=== PATIENT | female | born 1955 | race Caucasian/White ===

== ENCOUNTER 2017-09-08 12:29 | Inpatient (IN) ==
[2017-09-08] MEDS ORDERED: ONDANSETRON 4 MG/2 ML VIAL IV PRN (13:00)
[2017-09-08] MEDS ORDERED: PANTOPRAZOLE 40 MG VIAL IV ONE (13:00)
[2017-09-08] MEDS ORDERED: 0.9 % SODIUM CHLORIDE 250 ML IV SCH (13:00)
--- NOTE | 2017-09-08 13:17 | Internal Med History&Physical ---
Medical - H&P: HPI Patient information: Note initiated : 09/08/17 at 1:17 pm Service Date, if different from initiated Date: [] Patient: Nora Contreras 62 y/o F admitted on 09/08/17 for Anemia. Chief Complaint: fatigue, dyspnea. History of present illness: Patient 62-year-old female with a history of prediabetes, untreated hyperlipidemia, treated hypertension who presents with progressive dyspnea. The patient notes that her mother was ill patient was old viral illness around giving she had some GI symptoms with nausea and diarrhea. That resolved. About 2 weeks ago with the nausea returned. She had no emesis. However she did develop diarrhea of black stools which lasted about 3 days. She described them as "chalky". Her stools are now lightened up. She had no bright red blood per rectum. She had no emesis, no hematemesis. 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 She normally is active and walks a lot, now gets short of breath with minimal exertion. In addition she feels lightheaded. Additionally she's had some left upper abdominal pain, which she describes as a "stitch" in her left side which cramps around to the left back. She also notes that she feels bloated after eating a small amount. Last Monday she had some burning chest pain, does have a history of gastroesophageal reflux, took some Tums which seemed to help. The patient uses naproxen twice daily for chronic back pain, taking one over-the -counter tablet twice daily. She does not use a proton pump inhibitor or an H2 antagonist. Additionally she's noted some lower extremity edema, some weight gain over the last several days. No orthopnea. No history of heart failure. No history of coronary disease. Patient's had intermittent headaches., No fevers or chills, no sore throat, no vision changes, no syncope. Dyspnea is noted, no cough or sputum production, no pleuritic chest pain. She had burning chest pain as noted above. For couple years she's had occasional difficulty swallowing, with food apparently feeling like it sticks in the upper throat. She has not been evaluated for that. She states she does have a history of anemia and is taking [id number] iron pill. That seemed to be associated with her younger years, not such an issue recently. She presents the emergency department, evaluation reveals microcytic anemia with hemoglobin 6.6. She is being admitted for further evaluation of anemia, presumptive upper gastrointestinal hemorrhage by history. All systems: reviewed and no additional remarkable complaints except as stated Medical - H&P: PMH Medical history: Hypertension Hyperlipidemia Pre-diabetes History of anemia Gastroesophageal reflux Chronic back pain Chronic sinus congestion Exertional asthma Surgical history: History of cholecystectomy Pertinent family history: Mother with gastroesophageal reflux and coronary disease. Both paternal grandparents had colon cancer. Social history: She lives with her . Works as a teacher kindergarten. She occasionally has alcoholic drink, none recently. No tobacco use. Medical - H&P: Meds Home Medications Medication Instructions Recorded Confirmed Type Centrum Complete Multivit Tab 1 tab PO DAILY 09/08/17 09/08/17 History Iron 325 mg PO DAILY 09/08/17 09/08/17 History amlodipine 10 mg tablet 10 mg PO QDAY 09/08/17 09/08/17 History carisoprodol 350 mg tablet 350 mg PO BID PRN tab 09/08/17 09/08/17 History hydrochlorothiazide 25 mg tablet 25 mg PO QDAY 09/08/17 09/08/17 History lisinopril 40 mg tablet 60 mg PO QDAY 09/08/17 09/08/17 History metformin 1,000 mg tablet 1,000 mg PO DAILY tab 09/08/17 09/08/17 History naproxen 500 mg tablet 600 mg PO QD-BID PRN 09/08/17 09/08/17 History Allergies Allergy/AdvReac Type Severity Reaction Status Date / Time No Known Drug Allergies Allergy Unverified 09/08/17 09:34 Medical - H&P: Exam - Constitutional Vitals: Temp Resp BP Pulse Ox 97.9 F 18 136/76 100 09/08/17 13:01 09/08/17 13:01 09/08/17 13:01 09/08/17 13:01 General appearance: no acute distress, obese - Head Head exam: Present: atraumatic, normal inspection - Eye Eye exam: Present: EOMI, PERRL. Absent: conjunctival injection, scleral icterus - ENT ENT exam: Present: mucous membranes moist, normal exam, normal oropharynx - Neck Neck exam: Present: full ROM. Absent: lymphadenopathy, meningismus, thyromegaly - Respiratory Respiratory exam: Present: normal respiratory exam, CTAB. Absent: accessory muscle use - Cardiovascular Cardiovascular exam: Present: normal rate and rhythm, systolic murmur. Absent: diastolic murmur - Expanded Cardiovascular Exam Location: Present: LUSB Intensity: 2/6 Peripheral pulses: 2+: carotid (L), carotid (R) - GI/Abdominal GI/Abdominal exam: Present: normal bowel sounds, soft. Absent: distended, guarding, rebound, tenderness - Extremities Exam Extremities exam: Present: pedal edema (trace), neurovascular intact. Absent: joint swelling - Neurological Exam Neurological exam: Present: alert, CN II-XII intact, normal gait, oriented X3. Absent: motor sensory deficit - Psychiatric Psychiatric exam: Present: normal affect, normal mood - Skin Skin exam: Present: dry, warm Medical - H&P: Reslt - Labs Labs: Lab results from [facility] White count 5.3, hemoglobin 6.6, platelet count 180,000 with MCV of 77. Sodium 139, potassium 4.2, chloride 102, bicarbonate 22, BUN 14, creatinine 0.8. Glucose on nonfasting sample 128. Liver enzymes normal. Troponin is normal. CK-MB mildly abnormal, uncertain significance. Stool guaiac done in [facility] is negative - Imaging and Cardiology Chest x-ray Status: image reviewed by me Additional comments: IMPRESSION: No acute abnormality Medical - H&P: A/P (1) Gastrointestinal hemorrhage Current visit: Yes Status: Acute (2) Hypertension Current visit: Yes Status: Acute (3) Anemia Current visit: No Status: Acute - Narrative A/P Narrative: 62-year-old female presents with dyspnea on exertion, fatigue, lightheadedness, recent weight gain and edema. Found to have severe anemia with hemoglobin of 6.6. Microcytic anemia. Suspect this is from GI hemorrhage given her history of nausea and dark stools occurring about 2 weeks ago just as she developed her symptoms. Suspect this is associated with nonsteroidal use, she uses naproxen twice daily for chronic back pain. Renal function normal. Troponins are negative. CK-MBs are mildly abnormal uncertain significance given troponins below the limit of detection, certainly a more sensitive marker of any cardiac injury. Plan: Inpatient admission Transfuse 2 units packed red blood cells to keep 2 units ahead GI consultation Nothing by mouth tomorrow morning for EGD tomorrow afternoon Proton pump inhibitor for acid suppression Hypertension. Blood pressures were running normal, and she had not taken medications this morning. Plan: Hold antihypertensives in the face of GI hemorrhage. Lower extremity edema. She also has a cardiac murmur, suspect these are both functional from a high output state. Plan: Follow exam after blood administration, may benefit from diuresis. Prediabetes. Abnormal nonfasting glucose of 128, likely represents stress. Plan: Check hemoglobin A1c. CODE STATUS is Full Code. Prophylaxis: SCDs. Pharmacologic prophylaxis is contraindicated due to GI hemorrhage.
[2017-09-08] MEDS: 0.9 % SODIUM CHLORIDE 1,000 ML IV SCH (14:14)
[2017-09-08] MEDS: PANTOPRAZOLE 40 MG VIAL IV SCH (22:00)
[2017-09-08] MEDS ORDERED: CARISOPRODOL 350 MG TABLET PO PRN (22:07)
[2017-09-09] MEDS: 0.9 % SODIUM CHLORIDE 1,000 ML IV SCH ×3 (03:59→21:12)
[2017-09-09 09:05] LABS: Basophils # (Auto) 0 K/mcL (0.0-0.3); Basophils % (Auto) 0.3 % (0.0-2.0); Eosinophils # (Auto) 0.2 K/mcL (0.0-0.7); Eosinophils % (Auto) 3.7 % (0.0-7.0); Lymphocytes % (Auto) 23.7 % (15.5-49.0); Mean Cell Volume 81.3 fL (80.0-100.0); Mean Corpuscular HGB Conc 32.9 g/dL (31.0-36.0); Mean Corpuscular Hemoglobin 26.8 pg (26.0-34.0); Monocytes # (Auto) 0.3 K/mcL (0.1-0.9); Monocytes % (Auto) 7.3 % (1.0-12.0); Platelet Count 129 K/mcL (140-440); RBC 3.61 M/mcL (4.00-5.20); Red Cell Distribution Width 17.1 % (11.5-14.5)
[2017-09-09] MEDS: PANTOPRAZOLE 40 MG VIAL IV SCH ×2 (09:18→18:17)
[2017-09-09 09:27] LABS: ALT/SGPT 18 U/l (0-40); Albumin 3.1 gm/dL (3.2-5.2); Albumin/Globulin Ratio 1.1 (1.0-2.3); Alkaline Phosphatase 80 U/L (39-117); Bilirubin,Direct < 0.2 mg/dL (0.0-0.3); Blood Urea Nitrogen 11 mg/dl (8-23); Gamma Glutamyl Transpeptidase 21 U/L (5-36); Uric Acid 7.1 mg/dL (2.5-8.0)
[2017-09-09] MEDS ORDERED: PROPOFOL 200 MG/20 ML VIAL IV SCH (13:15)
[2017-09-09] MEDS ORDERED: MIDAZOLAM 2 MG/2 ML VIAL IV SCH (13:15)
[2017-09-09] MEDS ORDERED: MIDAZOLAM 2 MG/2 ML VIAL ONE (13:37)
[2017-09-09] MEDS ORDERED: PROPOFOL 20 ML IV ONE ×2 (13:37)
--- NOTE | 2017-09-09 16:40 | Internal Med Progress Note ---
Medical - PN: Subj Patient information: Note initiated : 09/09/17 at 4:37 pm Service Date, if different from initiated Date: [] Patient: Nora Contreras 62 y/o F admitted on 09/08/17 for Anemia. Chief Complaint: f/u GI Bleed Interval history: 09/08 Patient 62-year-old female with a history of prediabetes, untreated hyperlipidemia, treated hypertension who presents with progressive dyspnea. The patient notes that her mother was ill patient was old viral illness around giving she had some GI symptoms with nausea and diarrhea. That resolved. About 2 weeks ago with the nausea returned. She had no emesis. However she did develop diarrhea of black stools which lasted about 3 days. She described them as "chalky". Her stools are now lightened up. She had no bright red blood per rectum. She had no emesis, no hematemesis. 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 She normally is active and walks a lot, now gets short of breath with minimal exertion. In addition she feels lightheaded. 2/3 No complaints this morning. Tolerated transfusion. Gave further 2 units packed red cells as hemoglobin increased to mid 7 range after first 2 units. No hematemesis, no bloody bowel movements. Underwent EGD this afternoon, showing varices, and unexpected finding. Dr. Roy banded. There may have also been an old area of bleeding in the duodenum. Currently back in the ICU, will be monitored for any evidence or recurrent bleeding with her newly diagnosed portal hypertension varices. - Constitutional Vitals: Vital Signs Temp Pulse Resp BP Pulse Ox 98.5 F 89 14 149/108 97 09/09/17 16:01 09/09/17 16:28 09/09/17 14:11 09/09/17 16:16 09/09/17 16:28 Period Temp Pulse Resp BP Sys/Loyd Pulse Ox Last 24 Hr 97.2 F-98.5 F 74-103 12-20 118-162/69-108 94-100 Intake and Output 09/09/17 09/09/17 09/09/17 05:59 13:59 21:59 Intake Total 1900 / 1900 240 / 240 Output Total 1050 / 1050 700 / 700 250 / 250 Balance 850 / 850 -700 / -700 -10 / -10 Weight 259 lb 1.6 oz Patient Weight 09/10/17 05:59 Weight 259 lb 1.6 oz Intake & Output: Intake & Output 09/09/17 09/09/17 09/09/17 05:59 13:59 21:59 Intake Total 1900 / 1900 240 / 240 Output Total 1050 / 1050 700 / 700 250 / 250 Balance 850 / 850 -700 / -700 -10 / -10 Weight 259 lb 1.6 oz Intake: IV 1250 / 1250 Sodium Chloride 0.9% 1,000 ml @ 1000 / 1000 75 mls/hr IV .[id number] [facility] Rx#: [id number] Sodium Chloride 0.9% 250 ml @ 250 / 250 20 mls/hr IV .[id number] [facility] Rx#: [id number] Oral 240 / 240 Blood Product 650 / 650 Output: Void Amount 1050 / 1050 700 / 700 250 / 250 Other: Meal Breakfast Percent of Meal Consumed npo # Voids 1 # Emeses 1 Exam: General: Sitting in chair stress Chest: Clear, unlabored Cardiovascular: Regular, 1/6 systolic murmur, trace edema Abdomen: Obese, soft, nontender Neuro: Alert, oriented 3, nonfocal Medical - PN: Obj Da - Labs CBC & Chem 7: 09/09/17 06:46 09/09/17 06:46 Labs: Abnormal Lab Results 09/09/17 09/09/17 09/08/17 06:46 06:46 23:26 WBC 4.3 L RBC 3.61 L Hgb 9.7 L 7.3 L Hct 29.3 L 24.4 L RDW 17.1 H Plt Count 129 L Lymph # (Auto) 1.0 L Carbon Dioxide 20 L Glucose 112 H Calcium 8.2 L Magnesium 1.4 L Lactate Dehydrogenase 281 H Albumin 3.1 L Meds: Medications Carisoprodol (Soma) 350 mg PO BIDP PRN PRN Reason: Muscle Spasm Sodium Chloride (Sodium Chloride 0.9%) 1,000 mls @ 75 mls/hr IV .[id number] [facility] Last Admin: 09/09/17 03:59 Dose: 75 mls/hr Midazolam HCl (Versed) 0 mg IV ONCE [facility] Stop: 09/09/17 21:07 Last Admin: 09/09/17 13:46 Dose: 2 mg Morphine Sulfate (Morphine) 2 - 4 mg IV Q2HP PRN PRN Reason: PAIN LEVEL > 6 Ondansetron HCl (Zofran) 4 mg IV Q4HP PRN PRN Reason: Nausea And Vomiting Last Admin: 09/09/17 14:24 Dose: 4 mg Pantoprazole Sodium (Protonix) 40 mg IV BID [facility] Last Admin: 09/09/17 09:18 Dose: 40 mg Propofol (Diprivan) 0 mg IV ONCE [facility] Stop: 09/09/17 21:07 Last Admin: 09/09/17 13:46 Dose: 270 mg Medical - PN: A/P - Time Spent With Patient Total time spent is greater than 50% in coordination of care (as documented) at patient's floor/unit and/or counseling patient: Greater than 35 minutes (1) Gastrointestinal hemorrhage Status: Acute Current Visit: Yes (2) Hypertension Status: Acute Current Visit: Yes (3) Anemia Status: Acute Current Visit: No - Narrative A/P Narrative: 62-year-old female presents with dyspnea on exertion, fatigue, lightheadedness, recent weight gain and edema. Found to have severe anemia with hemoglobin of 6.6. Upper gastrointestinal hemorrhage. Secondary to newly diagnosed varices, though may have old area of duodenal ulcer as well. Hemodynamically stable, status post 4 units packed red blood cells. Etiology of portal hypertension may be SANDERS, though remainder of workup is pending. Plan: Trend hemoglobin, pain meds when necessary for post banding pain, continue PPI. Microcytic anemia, likely secondary to gastrointestinal blood loss. Iron studies pending. Plan: Trend hemoglobin, follow-up iron studies Hypertension. Blood pressures increasing. Plan: Resume antihypertensives Lower extremity edema. Improved after transfusion, likely from increased oncotic pressure. Suspect was some third spacing, possible high output state. Plan: Follow. Prediabetes. Abnormal nonfasting glucose of 128, likely represents stress. Plan: Check hemoglobin A1c. Medical - PN: Qual - VTE Deep Vein Thrombosis/Pulmonary Embolism Present on Admission: No
[2017-09-09] MEDS ORDERED: CARISOPRODOL 350 MG TABLET PO PRN (16:44)
[2017-09-09] MEDS ORDERED: ONDANSETRON 4 MG/2 ML VIAL IV PRN (16:44)
[2017-09-09] MEDS ORDERED: MAGNESIUM SULFATE 32.48 MEQ in DEXTROSE 5% IN WATER 50 ML IV ONE (16:47)
[2017-09-09 17:30] LABS: Ferritin 10.9 ng/ml (30-400)
[2017-09-09 17:43] LABS: Hepatitis B Surface Antibody POSITIVE (NEGATIVE); Hepatitis C Virus Antibody NON REACTIVE (NEGATIVE)
[2017-09-09 18:04] LABS: Iron 19 mcg/dl (37-145); Transferrin % Saturation 4 % (15-50); Unsaturated Iron Binding 363 mcg/dL (112-346)
[2017-09-09 18:12] LABS: Hepatitis B Surface Antigen NEGATIVE (NEGATIVE)
[2017-09-09] MEDS ORDERED: amLODIPine 10 MG TABLET PO ONE (18:15)
[2017-09-09] MEDS ORDERED: LISINOPRIL 20 MG TABLET PO ONE (18:15)
[2017-09-09] MEDS ORDERED: MAGNESIUM SULFATE 2 GM/50 ML BAG IV ONE ×2 (18:40→18:44)
[2017-09-10] MEDS: PANTOPRAZOLE 40 MG VIAL IV SCH (06:55)
[2017-09-10 06:57] LABS: Basophils # (Auto) 0 K/mcL (0.0-0.3); Basophils % (Auto) 0.1 % (0.0-2.0); Eosinophils # (Auto) 0.3 K/mcL (0.0-0.7); Lymphocytes # (Auto) 1.2 K/mcL (1.5-4.8); Lymphocytes % (Auto) 20.9 % (15.5-49.0); Mean Cell Volume 81.1 fL (80.0-100.0); Mean Corpuscular Hemoglobin 25.9 pg (26.0-34.0); Monocytes # (Auto) 0.6 K/mcL (0.1-0.9); Platelet Count 143 K/mcL (140-440); RBC 3.53 M/mcL (4.00-5.20); Red Cell Distribution Width 17.9 % (11.5-14.5)
[2017-09-10 07:12] LABS: ALT/SGPT 16 U/l (0-40); Albumin/Globulin Ratio 1.2 (1.0-2.3); Alkaline Phosphatase 76 U/L (39-117); Bilirubin,Direct < 0.2 mg/dL (0.0-0.3); Blood Urea Nitrogen 9 mg/dl (8-23); Gamma Glutamyl Transpeptidase 21 U/L (5-36); Uric Acid 5.7 mg/dL (2.5-8.0)
[2017-09-10] MEDS ORDERED: LISINOPRIL 20 MG TABLET PO SCH (09:00)
[2017-09-10] MEDS ORDERED: amLODIPine 10 MG TABLET PO SCH (09:00)
--- NOTE | 2017-09-10 09:33 | Ultrasound Report ---
History: Cirrhosis and varices Findings: The liver has a heterogeneous pattern but no discrete mass is present. The overall size liver is normal. Doppler shows normal blood flow in the hepatic and portal veins. The gallbladder is been removed. The bile ducts are nondilated. Common duct measures up to 5.3 mm. There is small amount of ascites along the superior border of the liver. No varices are identified. Ultrasound is relatively insensitive in detecting varices. The pancreas appears noninflamed. The spleen and kidneys are normal in size and homogeneous. The aorta and inferior vena cava are normal. There is no evidence of abscess or mass. Impression: Heterogeneous liver due to patient's known underlying cirrhosis. There is no gross evidence of malignant transformation. Mild ascites Interpreted and Authenticated by: Chano Aleman 09/10/17
[2017-09-10] MEDS: 0.9 % SODIUM CHLORIDE 1,000 ML IV SCH (10:27)
--- NOTE | 2017-09-10 14:33 | Discharge Summary ---
Medical - DS: Prov Patient information: Note initiated : 09/10/17 at 2:31 pm Service Date, if different from initiated Date: [] Patient: Nora Contreras 62 y/o F admitted on 09/08/17 for Anemia. Date of admission: 09/08/17 12:29 Discharge date: 09/10/17 Admitting clinician: Shanon Luu Consults: Shivam Joseph MD for GI Discharging clinician: Shanon Luu Medical - DS: Meds - Discharge Medications Prescriptions: Lidocaine [Lidoderm] 1 each TP DAILYP PRN #30 adh..patch PRN Reason: Back pain Omeprazole [Prilosec] 20 mg PO ACB #30 capsule Active and Home Medications: Home Medications Centrum Complete Multivit Tab 1 tab PO DAILY 09/08/17 [History Confirmed Last Taken 09/07/17] Iron 325 mg PO DAILY 09/08/17 [History Confirmed 09/08/17 Last Taken 09/07/17] amlodipine 10 mg tablet 10 mg PO QDAY 09/08/17 [History Confirmed 09/08/17 Last Taken 09/07/17] carisoprodol 350 mg tablet 350 mg PO BID PRN tab 09/08/17 [History Confirmed Last Taken 07/27/17] hydrochlorothiazide 25 mg tablet 25 mg PO QDAY 09/08/17 [History Confirmed 09/08 Last Taken 08/28/17] lisinopril 40 mg tablet 60 mg PO QDAY 09/08/17 [History Confirmed 09/08/17 Last Taken 09/07/17] metformin 1,000 mg tablet 1,000 mg PO DAILY tab 09/08/17 [History Confirmed 09/24 Last Taken 09/07/17] naproxen 500 mg tablet 600 mg PO QD-BID PRN 09/08/17 [History Confirmed Last Taken 09/08/17] Medical - DS: Hosp Hospital course: 09/08 Patient 62-year-old female with a history of prediabetes, untreated hyperlipidemia, treated hypertension who presents with progressive dyspnea. The patient notes that her mother was ill patient was old viral illness around Thanksgiving she had some GI symptoms with nausea and diarrhea. That resolved. About 2 weeks ago with the nausea returned. She had no emesis. However she did develop diarrhea of black stools which lasted about 3 days. She described them as "chalky". Her stools are now lightened up. She had no bright red blood per rectum. She had no emesis, no hematemesis. 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 She normally is active and walks a lot, now gets short of breath with minimal exertion. In addition she feels lightheaded. She presented to [facility] care for evaluation. Hemoglobin was noted to be 6.6 with microcytic indices and she was admitted for GI bleed with anemia. 2/3 No complaints this morning. Tolerated transfusion. Gave further 2 units packed red cells as hemoglobin increased to mid 7 range after first 2 units. No hematemesis, no bloody bowel movements. Underwent EGD this afternoon, showing varices, and unexpected finding. Dr. Roy banded. There may have also been an old area of bleeding in the duodenum. Currently back in the ICU, will be monitored for any evidence or recurrent bleeding with her newly diagnosed portal hypertension varices. 2/ The patient remained stable overnight. Mild mid chest pain likely secondary to banding. Tolerating her diet well. No nausea or vomiting, no hematemesis, no blood or dark stools. Hemoglobins remained stable into the afternoon. Will be discharged home. Received total of 4 units PRBC during hospitalization. Discussed need to avoid nonsteroidals. Have provided prescription for lidocaine patch to try as a treatment for her back pain. She also has hydrocodone at home if the pain becomes significantly worse. Her has bought [id number] omeprazole which she will take daily. She'll follow-up with Dr. Joseph in about 2 weeks for repeat EGD. Outstanding labs to evaluate for etiology of cirrhosis should be available to discuss with the patient at that time. She had some bradycardia at times in the hospital. At follow-up, she can discuss starting propranolol or other beta russ with Dr. Joseph. Discharge diagnosis: Upper GI bleed due to esophageal varicies Secondary discharge diagnosis: Esophageal varicies (new diagnosis) Cirrhosis/portal hypertension (new diagnosis) Hypertension Chronic back pain - Time Spent with Patient Total time spent providing and/or coordinating discharge services: Greater than 30 minutes Medical - DS: Exam - Constitutional Vitals: Vital Signs Temp Pulse Resp BP Pulse Ox 09/10/17 12:00 98.5 F 18 129/78 99 09/10/17 08:00 95 09/10/17 07:15 98.4 F 18 141/92 96 09/10/17 04:14 95 09/10/17 00:34 75 130/82 95 09/09/17 19:09 95 09/09/17 17:01 80 157/85 98 09/09/17 16:46 80 156/97 94 09/09/17 16:34 82 149/105 96 09/09/17 16:28 89 97 09/09/17 16:16 85 149/108 96 09/09/17 16:01 98.5 F 84 153/93 98 09/09/17 15:51 88 159/88 97 09/09/17 15:40 87 162/100 99 09/09/17 15:31 85 144/104 96 09/09/17 15:16 86 153/93 96 09/09/17 15:15 86 97 09/09/17 15:01 84 152/89 95 09/09/17 14:46 84 148/85 94 09/09/17 14:41 87 143/78 94 Intake and Output 09/10/17 09/10/17 09/10/17 05:59 13:59 21:59 Intake Total 1820 / 1820 Output Total 300 / 300 400 / 400 Balance -300 / -300 1420 / 1420 Intake: IV 1000 / 1000 Sodium Chloride 0.9% 1,000 ml @ 1000 / 1000 75 mls/hr IV .[id number] [facility] Rx#: [id number] Oral 820 / 820 Output: Void Amount 300 / 300 400 / 400 Other: Meal Lunch Percent of Meal Consumed 75% Feeding Ability Independent # Voids 1 Additional comments: General: Sitting up, no acute distress. Chest: Clear, no rales Cardiovascular: Regular, 1/6 systolic murmur, unchanged, trace lower extremity edema Abdomen: Obese, soft, nontender, active bowel sounds Neuro: Alert, oriented 3, nonfocal, ambulating independently. Medical - DS: Data Procedures and tests throughout hospitalization: EGD by Dr. Shivam Combs on 09/09/2017 Esophageal varices, banded 6 Esophagitis and stricture in distal esophagus Scarred area in pylorus, query partially healed ulcer. Labs on day of discharge: Labs from last 24 hours 09/10/17 09/10/17 09/10/17 12:14 03:41 03:41 WBC 5.6 RBC 3.53 L Hgb 9.9 L 9.1 L Hct 31.4 L 28.6 L MCV 81.1 MCH 25.9 L MCHC 32.0 RDW 17.9 H Plt Count 143 MPV 9.6 Gran % 63.0 Lymph % (Auto) 20.9 [place] % (Auto) 11.0 Eos % (Auto) 5.0 Baso % (Auto) 0.1 Gran # 3.5 Lymph # (Auto) 1.2 L [place] # (Auto) 0.6 Eos # (Auto) 0.3 Baso # (Auto) 0 Sodium 141 Potassium 3.8 Chloride 106 Carbon Dioxide 23 Anion Gap 12.0 BUN 9 Creatinine 0.7 GFR Calculation 94 Glucose 106 H Uric Acid 5.7 Calcium 7.9 L Phosphorus 2.9 Magnesium 2.1 Iron TIBC Unsat Iron Binding Transferrin % Sat Ferritin Total Bilirubin 0.6 Direct Bilirubin < 0.2 GGT 21 AST 25 ALT 16 Alkaline Phosphatase 76 Lactate Dehydrogenase 247 Total Protein 5.6 L Albumin 3.0 L Globulin 2.6 Albumin/Globulin Ratio 1.2 Ceruloplasmin Triglycerides 92 RANDI Screen Hep Bs Antigen Hep Bs Antibody Hep B Core Total Ab Hepatitis C Antibody 09/09/17 09/09/17 09/09/17 17:02 16:07 16:07 WBC RBC Hgb 9.9 L Hct 30.9 L MCV MCH MCHC RDW Plt Count MPV Gran % Lymph % (Auto) [place] % (Auto) Eos % (Auto) Baso % (Auto) Gran # Lymph # (Auto) [place] # (Auto) Eos # (Auto) Baso # (Auto) Sodium Potassium Chloride Carbon Dioxide Anion Gap BUN Creatinine GFR Calculation Glucose Uric Acid Calcium Phosphorus Magnesium Iron TIBC Unsat Iron Binding Transferrin % Sat Ferritin Total Bilirubin Direct Bilirubin GGT AST ALT Alkaline Phosphatase Lactate Dehydrogenase Total Protein Albumin Globulin Albumin/Globulin Ratio Ceruloplasmin Pending Triglycerides RANDI Screen Pending Hep Bs Antigen Hep Bs Antibody Hep B Core Total Ab Hepatitis C Antibody 09/09/17 09/09/17 16:07 16:07 WBC RBC Hgb Hct MCV MCH MCHC RDW Plt Count MPV Gran % Lymph % (Auto) [place] % (Auto) Eos % (Auto) Baso % (Auto) Gran # Lymph # (Auto) [place] # (Auto) Eos # (Auto) Baso # (Auto) Sodium Potassium Chloride Carbon Dioxide Anion Gap BUN Creatinine GFR Calculation Glucose Uric Acid Calcium Phosphorus Magnesium Iron 19 L TIBC 382 Unsat Iron Binding 363 H Transferrin % Sat 4 L Ferritin 10.9 L Total Bilirubin Direct Bilirubin GGT AST ALT Alkaline Phosphatase Lactate Dehydrogenase Total Protein Albumin Globulin Albumin/Globulin Ratio Ceruloplasmin Triglycerides RANDI Screen Hep Bs Antigen Negative Hep Bs Antibody Positive A Hep B Core Total Ab Pending Hepatitis C Antibody Non reactive - Imaging and Cardiology US - abdomen Additional comments: Impression: -Heterogeneous liver due to patient's known underlying cirrhosis. There is no gross evidence of malignant transformation -Mild ascites -Normal hepatic and portal vein flow on doppler Medical - DS: A/P - Patient/Caregiver Discharge Instructions Activity: increase activity as tolerated Diet: Low Fat Additional Instructions: Call Dr. Joseph's office to schedule repeat EGD and banding in 2-4 weeks ( they should have your name already). Avoid NSAID's [naproxen (Aleve, Naprosyn), ibuprofen (Advil, Motrin) and others] . Take omeprazole daily for 2 weeks, you safely take for longer if needed. Discuss with Dr. Desai if/when it would be safe to resume naproxen. - Problem Maintenance (1) Gastrointestinal hemorrhage Status: Resolved Qualifiers: GI bleed type/associated pathology: unspecified gastrointestinal hemorrhage type Qualified Code(s): K92.2 - Gastrointestinal hemorrhage, unspecified (2) Hypertension Status: Chronic Qualifiers: Hypertension type: essential hypertension Qualified Code(s): I10 - Essential (primary) hypertension (3) Anemia Status: Acute Qualifiers: Anemia type: other cause Other causes of anemia: acute posthemorrhagic Qualified Code(s): D62 - Acute posthemorrhagic anemia - Follow up Plan Disposition: Home, Self-Care Prognosis: Fair Rehab Potential: Fair Overall status at discharge: patient is back to baseline Medical - DS: Qual - VTE Deep Vein Thrombosis/Pulmonary Embolism Present on Admission: No
--- NOTE | 2017-09-11 08:34 | Operative Note ---
DATE OF OPERATION: 09/09/2017 PREPROCEDURE DIAGNOSIS: Upper GI bleed secondary to gastric or duodenal ulcer caused by nonsteroidal anti-inflammatory drug Naprosyn. POSTPROCEDURE DIAGNOSES: 1. Upper gastrointestinal bleed secondary to varices. 2. Gastritis. 3. Pyloric channel scarring, probably secondary to a partially healed ulcer. 4. Esophagitis. 5. Strictures. 6. ? EoE. PROCEDURE: Esophagogastroduodenoscopy with banding of varices and biopsy of antrum for CLOtest. SURGEON: Shivam Joseph M.D. INSTRUMENT USED: Olympus GURVINDER [id number] endoscope. CLOtest RESULTS:Negative INDICATIONS FOR PROCEDURE: The patient is a 62-year-old lady who was admitted by one of the hospitalists, Dr. Luu. I am uncertain if the patient has a primary care provider. She did have some melena for a while. I believe the bleeding stopped. However, she was very weak, short of breath and tired. Hemoglobin I believe was in the 6 gram range. She was admitted. She was resuscitated. She was given 4 units of blood she states. Endoscopy is indicated. ADDITIONAL COMMENTS: The patient drinks beer or wine about one time a week. She does not have any chronic heart, lung, liver, kidney problems that she is aware of. She is somewhat overweight. INFORMED CONSENT: The procedure was reviewed with the patient. The patient had no further questions and accepts the risks and benefits thereof. One of the risks that were discussed included . Additional risks that were also discussed included bleeding, reaction to medication, possible perforation and possible need for surgery. IV MEDICATIONS USED: Versed 2 mg and propofol 270 mg. A total of six bands were placed. The Holger 6-shooter banding kit was used from [employer]. FINDINGS: ESOPHAGUS: Proximal esophagus normal. Mid esophagus may have had some rings. Distal esophagus had some scarring and prominence consistent with varices in the last few centimeters. These are probably grade II. Two of them had sites consistent with bleeding sites. A total of six bands were placed. Initially, the varices were not so prominent. The endoscope passed through this area then there was significant bleeding noted. No ulcer " was noted. The area was washed. It appeared like blood was from the varices. There also appeared to be reflux esophagitis with some scarring, too. EG junction around 36 cm plus or minus. STOMACH: Cardia, fundus, body and antrum normal. In the pyloric channel on the superior aspect or lesser curve aspect, there was an area of scarring consistent with partially healed ulcer. No bleeding was noted. DUODENUM: This appeared normal. The endoscope was withdrawn. The banding capsule was attached. A total of six bands were deployed. Bleeding seemed to be under good control. RECOMMENDATIONS: I believe it would be garcia to proceed with an ultrasound of the liver to check for cirrhosis, fatty liver and ascites. Furthermore, a variety of blood tests, including the following will be ordered: Hepatitis C antibody, hepatitis B surface antigen, hepatitis B surface antibody, hepatitis B core antibody, iron, ferritin, ceruloplasmin, and RANDI. PPI medication at least once a day would be good for about 2 months. If she does continue to use nonsteroidal anti-inflammatory drugs such a PPI medication as Protonix or omeprazole may help decrease the risk of ulcer formation. Regarding the varices, I would recommend a repeat EGD in about 4 weeks. I have considered but chose not to place a beta russ in her medication list at this time. Some " feel that if you band the varices a beta russ is really not needed. Furthermore, with her recent hemodynamic instability, I do not believe adding a beta russ would be garcia until she fully recovers. By then, the varices will be banded and the beta russ will not be so needed. Further recommendations may be forthcoming after I see her back in about 4 weeks for repeat EGD and banding. We may also proceed with dilation sometime. We may proceed with biopsies to check for possible eosinophilic esophagitis. SEDATION TIME: 1345 to 1415. Please refer to the preprocedure nurse's notes, procedure flowsheet, procedure record, and post-procedure assessment for details of the sedation including the pre-, intra-, and post-service work. CRD:kd Job ID: [id number] Doc ID: [id number] Shivam TITUS
[2017-09-13 07:44] LABS: Hepatitis B Core Antibody NON-REACTIVE (NON-REACTIVE)
[2017-09-14 07:09] LABS: Ceruloplasmin 37 mg/dL (18-53)
== END 2017-09-10 15:23 | disposition home or self-care (01) | DRG 441 ==
LOC: ICU → OBSVTOIN 12:29
PROVIDERS: ADMIT Internal Medicine; ATTEND Internal Medicine
PROC: EGDBAND (ICD-10-PCS; 2017-09-09 14:00)